=== PATIENT | female | born 1985 | race Caucasian/White ===

== ENCOUNTER 2018-07-23 15:38 | Emergency (ER) | payer OTHER ==
[2018-07-23] MEDS: ALBUTEROL 0.083% (NEB) 2.5 MG/3 ML AMP HHN ×2 (16:36→18:02)
[2018-07-23] MEDS: IPRATROPIUM (NEB) 0.5 MG/2.5 ML AMP HHN ×2 (16:36→18:02)
[2018-07-23] MEDS: HYDROCODONE/APAP (5/325) TAB PO ×2 (16:55→17:05)
[2018-07-23] MEDS: IBUPROFEN 200 MG TAB PO (16:55)
[2018-07-23] MEDS: LORAZEPAM 0.5 MG TAB PO (17:38)
[2018-07-23 17:45] LABS: D-DIMER 553.93 ng/ml (<460)
[2018-07-23 17:54] LABS: TROPONIN-I < 0.012 ng/ml (0.000-0.120)
== END 2018-07-23 19:17 | disposition home or self-care (01) ==
LOC: FTE 15:38
DX: R07.89 Other chest pain (principal); J45.901 Unspecified asthma with (acute) exacerbation
CPT/HCPCS: 71046; 84484; 85378; 93005; 94640; 94664; 99284-25